=== PATIENT | female | born 1995 | race Caucasian/White ===

== ENCOUNTER 2019-06-07 09:04 | Inpatient (IN) ==
[~2019-06-07 09:04] MED LIST: 0.9 % Sodium Chloride 1,000 ML IVC SCH
[2019-06-07] MEDS ORDERED: Naloxone 0.4 MG/ML INJ IVP PRN (09:27)
[2019-06-07] MEDS ORDERED: Famotidine 20 MG/2 ML VIAL IVP PRN (09:27)
[2019-06-07] MEDS ORDERED: Metoclopramide 10 MG/2 ML VIAL IVP PRN ×2 (09:27→17:03)
[2019-06-07] MEDS ORDERED: Ringers Solution, Lactated 1,000 ML IVC SCH (09:30)
[2019-06-07] MEDS ORDERED: Gentamicin 240 MG in 0.9 % Sodium Chloride 100 ML IVPB ONE (09:48)
[2019-06-07] MEDS ORDERED: Clindamycin 900 MG/50 ML 900 MG/50 ML IV.SOLN IVPB ONE (09:48)
--- NOTE | 2019-06-07 10:27 | OB/GYN History & Physical ---
Date of Encounter: 06/07/19 Time of Encounter: 10:21 Assessment and Plan (1) 39 weeks gestation of Current visit: Yes Status: Acute Admit to labor and delivery for repeat low transverse section. Continuous EFM and toco. Cat 1 FHR Tracing (2) History of 2 sections Current visit: Yes Status: Acute Due to penicillin allergy prophylactic antibiotics will be 900 mg of clindamycin and gentamicin dose to 5 mg/kg. (3) Smoker Current visit: Yes Status: Acute Plan for nicotine patch . Plan for prescription for nicotine patches upon discharge home to facilitate smoking cessation area she is aware she is not to use the patches and smoke at the same time. (4) Polyhydramnios affecting in third trimester Current visit: Yes Status: Acute Plan for delivery via today (5) Anemia affecting in third trimester Current visit: Yes Status: Acute We will continue iron supplementation. Preop hemoglobin pending. We will follow-up on postop day #1 hemoglobin. History of Present Illness Chief complaint: Repeat low transverse section HPI: Ms. Garcia is a 24 year old female @ 39.0 wga by 3TUS who presents for repeat section, 2 previous sections. This is complicated by polyhydramnios and iron deficiency anemia. She does not desire permanent sterilization. This will be performed in the period she did not present for her appointment prior to 30 days from delivery. She currently smokes about 5 cigarettes per day. She is taking her vitamin daily and iron pill twice daily. She last ate at approximately 11:30 PM last night. +FM. Denies VB, LOF, abnml vag discharge, ctxs/cramping, dysuria or other complaints. Past Med Surg Social Fam HX - Past Medical History Medical history: no medical history Additional medical history: ANEMIA Psychiatric history: no psych history - Past Surgical History Surgical History: (x2), cataract Additional surgical history: cleft lip repain, T&A, wisdom teeth extraction, cryotherapy for actinic keratosis, colonoscopy, lens implant - Social History Smoking Status: Current every day smoker (5 cigarettes per day) Packs per day: Quarter pack Smokeless Tobacco Status: No Alcohol use: none Drug use: none Activity Level: Independent ambulation Recent Out of Country Travel Within the Last 8 Weeks: No Exposure or Possible Exposure to Illness During Travel: No Obstetrical History - Pregnancies : 4 Para: 2 Term: 1 : 1 Ab's: 1 Livin - History/Complications History/Complications: 2009primary low transverse section, term, male, 7 pounds 9.5 ounces 2017repeat low transverse section, female, 5 pounds, 36 weeks Medications and Allergies Clindamycin HCl 300 mg PO TID 10 Days #30 capsule 05/05/18 [Rx] Lidocaine HCl [Lidocaine HCl Viscous] 5 ml MM Q3-4H PRN #1 bottle 05/05/18 [Rx] Naproxen 500 mg PO BID 10 Days #20 tablet 05/05/18 [Rx] Allergy/AdvReac Type Severity Reaction Status Date / Time Penicillins Allergy Hives Verified 05/05/18 14:55 tramadol Allergy Hives Verified 05/05/18 14:55 Review of System OB All systems PM: reviewed and no additional remarkable complaints except as stated (All other systems are negative outside of the history of present illness.) Exam - Constitutional Constitutional: well developed, well nourished, no acute distress, average body habitus - HEENT HEENT: Normocephaly, Mucus Membranes Moist, Other (Teeth removed) - Neck Neck exam: supple - Abdomen Abdomen: Present: gravid, non tender - Uterus Uterus exam: Present: normal size, normal contour Results All other labs normal. - VTE Reasons for not Prescribing Prophylaxis: Treatment not Indicated - Low risk for VTE
[2019-06-07 10:39] LABS: Basophils % 0.4 %; Eosinophils # 0.1 K/mcL (0.0-0.6); Eosinophils % 1.4 %; Hematocrit 27.2 % (35.3-44.9); Hemoglobin 8.7 g/dL (11.5-15.4); Immature Granulocytes % 0.3 % (0-4); Lymphocytes # 1.8 K/mcL (0.6-4.6); Mean Corpuscular Hemoglobin 26.1 pg (28.0-33.3); Mean Corpuscular Volume 81.7 fL (83.0-100.0); Mean Platelet Volume 11.5 fL (9.4-12.4); Monocytes # 0.5 K/mcL (0.0-1.3); Monocytes % 6.8 %; Neutrophils # 5.3 K/mcL (1.6-8.9); Platelet Count 241 K/mcL (140-400); Red Blood Count 3.33 M/mcL (3.82-4.97); Red Cell Distribution Width 14.5 % (11.5-14.5); Segmented Neutrophils % 68.1 %; White Blood Count 7.8 K/mcL (4.3-11.1)
[2019-06-07] MEDS ORDERED: *HR* FentaNYL (PF) 100 MCG/2 ML VIAL ONE (10:47)
[2019-06-07] MEDS ORDERED: *HR* Morphine Sulfate/PF 10 MG/10 ML AMPUL ONE (10:47)
[2019-06-07 10:48] LABS: Amphetamine Screen,Urine Negative ng/mL (Cutoff=1000); Barbiturate Screen,Urine Negative ng/mL (Cutoff=200); Benzodiazepines Screen,Urine Negative ng/mL (Cutoff=200); Cannabinoid Screen,Urine Negative ng/mL (Cutoff = 50); Cocaine Screen,Urine Negative ng/mL (Cutoff= 300); Opiate Screen,Urine Negative ng/mL (Cutoff=300); Phencyclidine Screen,Urine Negative ng/mL (Cutoff=25)
[2019-06-07] MEDS ORDERED: *HR* Oxytocin 10 UNIT/ML VIAL IM ONE ×2 (10:49→11:58)
[2019-06-07] MEDS ORDERED: Lidocaine 1% 20 ML MDV ONE (10:52)
[2019-06-07] MEDS ORDERED: Bupivacaine/PF 0.75% in Dex 2 ML AMPUL INFILT ONE (10:52)
--- NOTE | 2019-06-07 10:56 | Anesthesia Evaluation PreOp ---
Date of Encounter: 06/07/19 Time of Encounter: 10:54 - Past History Planned Operation: Repeat Low-Transverse Cardiac History: Denies any Significant Hx Pulmonary History: Smoker (5 cig/day), Pack/yr (1.25) QUALITY COMPLIANCE CONSULTANT History: Denies Any Significant HX Other Medical History: Other (iron-deficiency anemia) Anesthesia History: No Prior Anesthetic Complications (No issues w/ NA; Denies personal and family h/o GA complications) : Yes Alcohol Use: none Drug use: none Medications and Allergies Ferrous Sulfate [High Potency Iron] 1 tab PO DAILY 06/07/19 [History] Pnv No.115/Iron Fumarate/FA [ 19 Chewable Tablet] 1 tab PO DAILY 06/07/19 [History] Allergy/AdvReac Type Severity Reaction Status Date / Time Amoxicillin Allergy Hives Verified 06/07/19 10:46 Penicillins Allergy Hives Verified 05/05/18 14:55 - Meds/Allergy Pre-op Review Medications Reviewed: Yes Allergies Reviewed: Yes Beta Blockers on Current Med List: No Anesthesia Results - Labs 06/07/19 Unknown Anesthesia Exam 107/75, HR 71 O2 Sat Height 1.52 m Weight 53.3 kg NPO (# of Hours): >8hrs Pain Scale: 0 Pain Scale Used: Numeric (1 - 10) - HEENT Pupil (Motor): Pupils equal Mallampati: I Teeth: Edentulous Oral Opening: Greater than 3 - QUALITY COMPLIANCE CONSULTANT LOC: Oriented QUALITY COMPLIANCE CONSULTANT Motor: Normal RUE, Normal LUE, Normal RLE, Normal LLE, Normal Face QUALITY COMPLIANCE CONSULTANT Sensory: Normal: RUE, LUE, RLE, LLE, Face - Cardiac Rhythm: Regular Murmur: None - Pulmonary Breath Sounds: bilateral Clear Respiratory Effort: Symmetrical Anesthesia Assess/Plan ASA Score: 2 Level of consciousness: Cooperative, Oriented, Tranquil Anesthetic Plan: Spinal Autologous Blood: No Monitoring Plan: Standard Monitors Recovery Plan: PACU
[2019-06-07] MEDS ORDERED: Ringers Solution, Lactated 1,000 ML ONE (11:30)
--- NOTE | 2019-06-07 11:49 | Anesthesia Procedures ---
Date of Encounter: 06/07/19 Time of Encounter: 11:47 Procedures: Anesthesia - Epidural/Spinal Patient ID/Chart reviewed: Yes Patient examined: Yes OB Eval: Gestational age: 39 weeks 0 days OB Eval: : 4 OB Eval: Hx Para: 2 OB Eval: Contractions: Non-stressed pattern Consent Obtained: Yes Supplemental Oxygen: None/Room Air Site Prep: Aseptic Technique, Sterile prep and drape, 0.5% Chlorhexidine/Alcohol Patient position: upright Local Anesthetic: Lidocaine 1% Amount of Local Anesthetic used: 3 Interspace Used: L3-L4 Blood: No CSF: Yes Paresthesia: No Spinal Needle Gauge: 25 (3.5" pencan needle) Spinal Dose: see anesthesia record Procedure: successful on 1st attempt; patient tolerated procedure well; VSS Vitals + FHT's: see anesthesia record
[2019-06-07] MEDS ORDERED: Ketorolac 30 MG/ML VIAL ONE (12:47)
[2019-06-07] MEDS ORDERED: *HR* OxyCODONE Immed Rel 5 MG TABLET PO PRN (13:01)
[2019-06-07] MEDS ORDERED: *HR* HYDROmorphone (PF) 1 MG/ML SYRINGE IVP PRN (13:01)
[2019-06-07] MEDS ORDERED: Ondansetron 4 MG/2 ML VIAL IVP ONE (13:01)
--- NOTE | 2019-06-07 13:05 | Anesthesia Evaluation Post Op ---
Date of Encounter: 06/07/19 Time of Encounter: 13:04 - Vital Signs Vital Signs: 121/50, HR 60, SpO2 99%, 97.6F RR 14 - Lungs Lungs: Clear Ascult./Percussion - Airway Airway: Non-obstructed - Cardiovascular Regular Rate - Mental Status Mental Status: Alert & Oriented, Answers Appropriately - Pain Pain Scale: 0 Pain Scale used: Numeric (1 - 10) - Nausea Vomiting Nausea Vomiting: Not Present - Hydration Hydration: Ice chips, Kenney catheter - Discharge PostOp Status: Transfer Patient to floor
--- NOTE | 2019-06-07 13:19 | OB/GYN Procedure Note ---
Section - Date of procedure: 06/07/19 Preop diagnosis: desires repeat (2. Anemia in 3. Polyhydramnios) Post-op diagnosis: same Procedure: section, repeat low transverse Surgeon: Edith Tony Quantitated Blood Loss: 600 Was there an administrative services assistant present: Yes Nurse Executive: Tori Ramirez Anesthesia Type: Spinal section complications: none Disposition: L&D Recovery Room Specimens: Placenta, Cord segment - (s) Infant A Delivery Date: 06/07/19 Delivery Time: 11:56 Presentation: vertex Gender: Male Viability: Viable Pounds: 6 Ounces: 6 Gram Weight: 2900 kg at 1 minute: 8 at 5 minutes: 9 Shoulder Dystocia: not encountered Placenta: spontaneous - Narrative Narrative: Operation Performed Repeat Low Transverse Section Indication for Surgery 24yo at 39.0 wga by third trimester ultrasound. complicated by polyhydramnios and anemia in , on iron twice daily. She does desire permanent sterilization. This will have to be performed she presented to sign her consents less than 30 days from the date of repeat section. The patient was informed of the risks and benefits of a repeat section. Risks included but were not limited to bleeding, infection, injury to the presenting part of the fetus, injury to the bladder, bowel, ureters and the surrounding neurovasular bundles. The patient expressed understanding of the risks involved. All questions were answered and the patient consented to the procedure. Preoperative Diagnosis 1. IUP @ 39.0 wga 2. Previous section x2 3. Anemia in 4. Polyhydramnios Postoperative Diagnosis Same Surgeon Edith Tony D.ODonna Nurse Executive(s) Tori ramirez Anesthesia Spinal with Duramorph Estimated Blood Loss 600 mL Urine Output 700 mL of clear yellow urine IV Fluids 2200 mL crystalloid Specimen(s) Placenta, Cord blood Findings Live male infant, weighing 6 pounds and 6 ounces, with APGARS of 8/9. Normal ap pearing uterus, tubes and ovaries bilaterally. Complications None Technique The patient was taken to the operating room where a timeout was performed to confirm correct patient and correct procedure. Preoperative antibiotics were administered and spinal anesthesia was found to be adequate. The patient was prepped and draped in the usual sterile fashion for a section, in supine position with a leftward tilt of the hips. A Pfannenstiel skin incision was made with a scalpel. Dissection to the fascia was carried out using sharp dissection, followed by the Bovie electrocautery for hemostasis. The fascia was incised with a scalpel and the incision was extended laterally using curved Bueno scissors. Cyril clamps were used to tent up the superior edge of the fascia and the underlying rectus muscles were dissected off using sharp dissection. Attention was then turned to the inferior fascial edge and dissection carried out in a similar manner. The rectus muscles were then in the midline and the peritoneum was entered using sharp dissection. Care was taken to avoid the bladder while incising with Metzenbaum scissors. The peritoneal incision was extended using traction. A bladder blade was inserted, the vesicoperitoneal reflection was identified, and a bladder flap was created using Metzenbaum scissors and blunt dissection. The bladder blade was then replaced to protect the bladder. The lower uterine segment was incised with a scalpel in transverse fashion. The hysterotomy was extended laterally with blunt traction in cephalad and caudad directions. The fetus was in vertex presentation. The surgeon's hand was placed under the 's head and the infant delivered through the hysterotomy with the assistance of fundal pressure. The mouth and nose were bulb suctioned and the cord was clamped 2 and cut. The was safely transferred to the warmer for further care by the shed boss. The placenta, with three-vessel cord, was expressed intact. The uterus was wiped clean of clots and debris before closing the hysterotomy with a running locked 0 Vicryl suture. A non-hemostatic area at the right of the incision required a single [id number] suture. A venous sinus, just lateral to the previous stitch, continued to ooze. A single sheet of Surgicel was placed to maintain hemostasis. Excellent hemostasis obtained. The fascia was closed using Stratafix suture in a running nonlocked fashion. The skin was closed with a subcuticular stitch of 4-0 Vicryl. The patient tolerated the procedure well. At the end of the procedure, all needle sponge and instrument counts were noted to be correct 2. The patient tolerated the procedure well and was transferred to the recovery room in stable condition.
[2019-06-07] MEDS ORDERED: Sennosides 8.6 MG TABLET PO PRN (17:03)
[2019-06-07] MEDS ORDERED: Ondansetron 4 MG/2 ML VIAL IVP PRN (17:03)
[2019-06-07] MEDS ORDERED: Oxytocin 20 units/ LR 1000 mL 20 UNIT/1,000 ML BAG IVC SCH (17:15)
[2019-06-07] MEDS: Acetaminophen 325 MG TABLET PO SCH ×2 (17:39→23:58)
[2019-06-07] MEDS: Ketorolac 30 MG/ML VIAL IVP SCH ×2 (18:55→23:57)
[2019-06-07 19:57] LABS: Hematocrit 26.4 % (35.3-44.9); Hemoglobin 8.3 g/dL (11.5-15.4)
[2019-06-07] MEDS: Simethicone 80 MG TAB.CHEW PO SCH (20:47)
[2019-06-07] MEDS: *HR* OxyCODONE/APAP 5/325 TABLET PO PRN (20:47)
[2019-06-08] MEDS: *HR* OxyCODONE/APAP 5/325 TABLET PO PRN ×2 (02:49→10:12)
[2019-06-08] MEDS: Ketorolac 30 MG/ML VIAL IVP SCH (06:04)
[2019-06-08] MEDS: Acetaminophen 325 MG TABLET PO SCH (06:05)
[2019-06-08] MEDS ORDERED: Prenatal Vit/FA 1 EACH TABLET PO SCH (09:00)
[2019-06-08] MEDS ORDERED: Nicotine 7 MG PATCH.TD24 TD SCH (09:00)
--- NOTE | 2019-06-08 09:38 | Discharge Summary ---
Date of Encounter: 06/08/19 Time of Encounter: 09:36 - Discharge Diagnosis (1) Status post section Priority: Primary Status: Acute Comments: Stable, meeting PP milestones, bottle feeding, pain well managed on po pain me dication, desires POD#1 discharge. (2) Anemia affecting in third trimester Priority: Secondary Status: Acute Comments: will discharge home on iron - Discharge Medications Prescriptions: New Ferrous Sulfate 325 mg PO BIDWM #60 tablet Ibuprofen [Motrin] 600 mg PO Q6HR #60 tablet Nicotine Patch [Nicoderm] 7 mg TD DAILY patch.td24 OxyCODONE/APAP 5/325 [Percocet 5/325 MG] 1 each PO Q6HR PRN 5 Days #20 tablet PRN Reason: Breakthrough Pain Acetaminophen [Tylenol] 975 mg PO Q6HR tablet Docusate [Colace] 100 mg PO BID #30 capsule Simethicone [Gas-X] 80 mg PO TID tab.chew Continued Pnv No.115/Iron Fumarate/FA [ 19 Chewable Tablet] 1 tab PO DAILY Discontinued Ferrous Sulfate [High Potency Iron] 1 tab PO DAILY Home Medications: Pnv No.115/Iron Fumarate/FA [ 19 Chewable Tablet] 1 tab PO DAILY 06/07/19 [History] Acetaminophen [Tylenol] 975 mg PO Q6HR tablet 06/08/19 [Rx] Docusate [Colace] 100 mg PO BID #30 capsule 06/08/19 [Rx] Ferrous Sulfate 325 mg PO BIDWM #60 tablet 06/08/19 [Rx] Ibuprofen [Motrin] 600 mg PO Q6HR #60 tablet 06/08/19 [Rx] Nicotine Patch [Nicoderm] 7 mg TD DAILY patch.td24 06/08/19 [Rx] OxyCODONE/APAP 5/325 [Percocet 5/325 MG] 1 each PO Q6HR PRN 5 Days #20 tablet 06/08/19 [Rx] Simethicone [Gas-X] 80 mg PO TID tab.chew 06/08/19 [Rx] Allergies/Adverse Reactions: 3 Allergy/AdvReac Type Severity Reaction Status Date / Time Amoxicillin Allergy Hives Verified 06/07/19 10:46 Penicillins Allergy Hives Verified 05/05/18 14:55 Data Procedures and tests throughout hospitalization: Laboratory Tests 06/07/19 06/07/19 06/07/19 19:18 Unknown Unknown WBC RBC Hgb 8.3 L Hct 26.4 L MCV MCH MCHC RDW Plt Count MPV Immature Gran % Seg Neutrophils % Lymphocytes % Monocytes % Eosinophils % Basophils % Neutrophils # Lymphocytes # Monocytes # Eosinophils # Basophils # Urine Opiates Screen Negative Ur Buprenorphine Scrn Negative Ur Barbiturates Screen Negative Ur Phencyclidine Scrn Negative Ur Amphetamines Screen Negative U Benzodiazepines Scrn Negative Urine Cocaine Screen Negative U Marijuana (THC) Screen Negative Ur Drug Screen Interp See Below Blood Type A POSITIVE Antibody Screen NEGATIVE Crossmatch See Detail 06/07/19 Unknown WBC 7.8 RBC 3.33 L Hgb 8.7 L Hct 27.2 L MCV 81.7 L MCH 26.1 L MCHC 32.0 RDW 14.5 Plt Count 241 MPV 11.5 Immature Gran % 0.3 Seg Neutrophils % 68.1 Lymphocytes % 23.0 Monocytes % 6.8 Eosinophils % 1.4 Basophils % 0.4 Neutrophils # 5.3 Lymphocytes # 1.8 Monocytes # 0.5 Eosinophils # 0.1 Basophils # 0.0 Urine Opiates Screen Ur Buprenorphine Scrn Ur Barbiturates Screen Ur Phencyclidine Scrn Ur Amphetamines Screen U Benzodiazepines Scrn Urine Cocaine Screen U Marijuana (THC) Screen Ur Drug Screen Interp Blood Type Antibody Screen Crossmatch Labs on day of discharge: Labs from last 24 hours 06/07/19 06/07/19 06/07/19 Unknown Unknown Unknown WBC 7.8 RBC 3.33 L Hgb 8.7 L Hct 27.2 L MCV 81.7 L MCH 26.1 L MCHC 32.0 RDW 14.5 Plt Count 241 MPV 11.5 Immature Gran % 0.3 Seg Neutrophils % 68.1 Lymphocytes % 23.0 Monocytes % 6.8 Eosinophils % 1.4 Basophils % 0.4 Neutrophils # 5.3 Lymphocytes # 1.8 Monocytes # 0.5 Eosinophils # 0.1 Basophils # 0.0 Urine Opiates Screen Negative Ur Buprenorphine Scrn Negative Ur Barbiturates Screen Negative Ur Phencyclidine Scrn Negative Ur Amphetamines Screen Negative U Benzodiazepines Scrn Negative Urine Cocaine Screen Negative U Marijuana (THC) Screen Negative Ur Drug Screen Interp See Below Blood Type A POSITIVE Antibody Screen NEGATIVE Crossmatch See Detail 06/07/19 19:18 WBC RBC Hgb 8.3 L Hct 26.4 L MCV MCH MCHC RDW Plt Count MPV Immature Gran % Seg Neutrophils % Lymphocytes % Monocytes % Eosinophils % Basophils % Neutrophils # Lymphocytes # Monocytes # Eosinophils # Basophils # Urine Opiates Screen Ur Buprenorphine Scrn Ur Barbiturates Screen Ur Phencyclidine Scrn Ur Amphetamines Screen U Benzodiazepines Scrn Urine Cocaine Screen U Marijuana (THC) Screen Ur Drug Screen Interp Blood Type Antibody Screen Crossmatch Date of admission: 06/07/19 09:04 Discharging clinician: Lindsay Jimenez Anticipated date of discharge: 06/08/19 - Patient Status Disposition: Home, Self-Care Condition: Good Functional capacity at discharge: independent ambulation Overall status at discharge: patient is progressing back to baseline - Discharge Instructions - Diet and Activity Activity: resume usual activities as tolerated Diet: regular diet Hospital Course Reason for admission: section Delivery: section Episiotomy: none Laceration: none Other procedures: tubal ligation complications: none Discharge diagnosis: IUP at term delivered [place] baby: male Hospital course: delivery with bilateral tubal ligation, stable in recovery, anemia noted during . discharge to home Time Attestation: Total time spent providing and/or coordinating discharge services: Time Spent: Less than 30 minutes - VTE Reasons for not Prescribing Prophylaxis: Treatment not Indicated - Low risk for VTE Documentation of Mechanical Device: Intermittent pneumatic compression device Exam - Constitutional Vitals: Temp Pulse Resp BP Pulse Ox 98.3 F 56 16 110/66 98 06/08/19 08:10 06/08/19 08:10 06/08/19 08:10 06/08/19 08:10 06/08/19 08:10 General appearance IM: A&O X 3 - Respiratory Respiratory exam: Present: CTAB - Cardiovascular Cardiovascular exam IM: Present: RRR - GI/Abdominal GI/Abdominal exam IM: soft Incision: dry, dressed - Uterine Tone: Firm Uterus Position: 1 Finger Above Umbilicus - Extremities Exam Extremities exam IM: Present: normal capillary refill, normal inspection - Neurological Exam Neurological exam: normal gait, oriented X3 - Psychiatric Additional comments: reports good mood
[2019-06-08] MEDS: Simethicone 80 MG TAB.CHEW PO SCH (10:12)
[2019-06-08] MEDS ORDERED: Ibuprofen 600 MG TABLET PO SCH (12:47)
[2019-06-23 10:02] VITALS: BP 145/72
--- NOTE | 2019-06-23 10:02 | OB/GYN Procedure Note ---
Section - Date of procedure: 06/07/19 Preop diagnosis: desires repeat (2. Anemia in 3. Polyhydramnios) Post-op diagnosis: same Procedure: section, repeat low transverse Surgeon: Edith Tony Quantitated Blood Loss: 600 Was there an hospital aides and assistants teacher present: Yes Music Specialist: Tori Ramirez Anesthesia Type: Spinal section complications: none Disposition: L&D Recovery Room Specimens: Placenta, Cord segment - (s) Infant A Delivery Date: 06/07/19 Delivery Time: 11:56 Presentation: vertex Gender: Male Viability: Viable Pounds: 6 Ounces: 6 Gram Weight: 2900 kg at 1 minute: 8 at 5 minutes: 9 Shoulder Dystocia: not encountered Placenta: spontaneous - Narrative Narrative: Operation Performed Repeat Low Transverse Section Indication for Surgery 24yo at 39.0 wga by third trimester ultrasound. complicated by polyhydramnios and anemia in , on iron twice daily. She does desire permanent sterilization. This will have to be performed she presented to sign her consents less than 30 days from the date of repeat section. The patient was informed of the risks and benefits of a repeat section. Risks included but were not limited to bleeding, infection, injury to the presenting part of the fetus, injury to the bladder, bowel, ureters and the surrounding neurovasular bundles. The patient expressed understanding of the risks involved. All questions were answered and the patient consented to the procedure. Preoperative Diagnosis 1. IUP @ 39.0 wga 2. Previous section x2 3. Anemia in 4. Polyhydramnios Postoperative Diagnosis Same Surgeon Edith Tony D.ODonna Music Specialist(s) Tori ramirez Anesthesia Spinal with Duramorph Estimated Blood Loss 600 mL Urine Output 700 mL of clear yellow urine IV Fluids 2200 mL crystalloid Specimen(s) Placenta, Cord blood Findings Live male infant, weighing 6 pounds and 6 ounces, with APGARS of 8/9. Normal ap pearing uterus, tubes and ovaries bilaterally. Complications None Technique The patient was taken to the operating room where a timeout was performed to confirm correct patient and correct procedure. Preoperative antibiotics were administered and spinal anesthesia was found to be adequate. The patient was prepped and draped in the usual sterile fashion for a section, in supine position with a leftward tilt of the hips. A Pfannenstiel skin incision was made with a scalpel. Dissection to the fascia was carried out using sharp dissection, followed by the Bovie electrocautery for hemostasis. The fascia was incised with a scalpel and the incision was extended laterally using curved Bueno scissors. Cyril clamps were used to tent up the superior edge of the fascia and the underlying rectus muscles were dissected off using sharp dissection. Attention was then turned to the inferior fascial edge and dissection carried out in a similar manner. The rectus muscles were then in the midline and the peritoneum was entered using sharp dissection. Care was taken to avoid the bladder while incising with Metzenbaum scissors. The peritoneal incision was extended using traction. A bladder blade was inserted, the vesicoperitoneal reflection was identified, and a bladder flap was created using Metzenbaum scissors and blunt dissection. The bladder blade was then replaced to protect the bladder. The lower uterine segment was incised with a scalpel in transverse fashion. The hysterotomy was extended laterally with blunt traction in cephalad and caudad directions. The fetus was in vertex presentation. The surgeon's hand was placed under the 's head and the infant delivered through the hysterotomy with the assistance of fundal pressure. The mouth and nose were bulb suctioned and the cord was clamped 2 and cut. The was safely transferred to the warmer for further care by the metal polisher and buffer apprentice. The placenta, with three-vessel cord, was expressed intact. The uterus was wiped clean of clots and debris before closing the hysterotomy with a running locked 0 Vicryl suture. A non-hemostatic area at the right of the incision required a single [id number] suture. A venous sinus, just lateral to the previous stitch, continued to ooze. A single sheet of Surgicel was placed to maintain hemostasis. Excellent hemostasis obtained. The fascia was closed using Stratafix suture in a running nonlocked fashion. The skin was closed with a subcuticular stitch of 4-0 Vicryl. The patient tolerated the procedure well. At the end of the procedure, all needle sponge and instrument counts were noted to be correct 2. The patient tolerated the procedure well and was transferred to the recovery room in stable condition.
== END 2019-06-08 10:36 | disposition home or self-care (01) | DRG 540 ==
LOC: 1NENULAB 09:04 → 1NENUOBS 16:10
PROVIDERS: ADMIT Obstetrics & Gynecology; ATTEND Obstetrics & Gynecology